=== PATIENT | female | born 1960 | race Caucasian/White ===

== ENCOUNTER 2017-06-13 20:03 | Emergency (ER) | payer OTHER ==
[~2017-06-13] VITALS: Ht 170.2 cm; Wt 81.6 kg
[~2017-06-13 20:03] MED LIST: ALPR0.5T7 PO; BUTA-187 PO; HYDR-2601; LOSA50TA6 PO
[2017-06-13] MEDS ORDERED: SODIUM CHLORIDE 0.9% 1,000 ML IV ONE ×2 (23:00)
[2017-06-13 23:07] LABS: Basophils # (auto) 0 uL; Basophils % (auto) 0.2 % (0.0-2.0); Eosinophils # (auto) 0.1 uL; Eosinophils % (auto) 0.7 % (0.0-7.0); Hematocrit 40.5 % (36.0-46.0); Lymphocytes # (auto) 2.3 uL; Lymphocytes % (auto) 15.3 % (10.0-50.0); Mean Corpuscular Hemoglobin 33.2 pg (28.0-32.0); Mean Corpuscular Hgb Conc. 34.5 g/dL (32.0-36.0); Mean Corpuscular Volume 96.4 fL (80.0-100.0); Mean Platelet Volume 8.7 fL (6.9-10.8); Monocytes % (auto) 6.6 % (0.0-12.0); Neutrophils # (auto) 11.6 uL; Neutrophils % (auto) 77.2 % (37.0-80.0); Platelet Count (auto) 254 10^3/uL (140-450); Red Cell Distribution Width 13.5 % (11.8-14.3)
[2017-06-13 23:19] LABS: Acetaminophen < 2.0 ug/mL (10-30); Albumin 3.5 g/dL (3.4-5.0); Anion Gap 6 (5-15); Aspartate Aminotransferase 13 U/L (15-37); BUN/Creatinine Ratio 21.1; Blood Urea Nitrogen 15 mg/dL (7-18); Calcium 8.5 mg/dL (8.5-10.1); Carbon Dioxide 26 mmol/L (21-32); Chloride 107 mmol/L (98-107); GFR African American 110 mL/min; GFR Non-African American 91 mL/min; Glucose 131 mg/dL (74-106); Potassium 3.8 mmol/L (3.5-5.1); Salicylate 4.8 mg/dL (2.8-20.0); Sodium 139 mmol/L (136-145)
[2017-06-13 23:23] LABS: Alkaline Phosphatase 77 U/L (45-117); Bilirubin, Total 0.1 mg/dL (0.2-1.0); Total Protein 7.2 g/dL (6.4-8.2)
[2017-06-14 00:25] VITALS: BP 132/72
[2017-06-14 01:33] LABS: Urine Bilirubin Negative (Negative); Urine Blood Negative /uL (Negative); Urine Color Yellow (Yellow); Urine Glucose Normal (Normal); Urine Ketone Negative (Negative); Urine Nitrite Negative (Negative); Urine RBC 1 /hpf (0 - 4); Urine Squamous Epithelial Cell FEW /hpf (<5); Urine Urobilinogen Normal (Negative); Urine pH 5.5 (5.0-8.0)
== END 2017-06-14 02:04 | disposition home or self-care (01) ==
LOC: EDBD 20:03 → ER 20:20
DX: G40.909 Epilepsy, unspecified, not intractable, without status epilepticus (principal); I10 Essential (primary) hypertension; F17.210 Nicotine dependence, cigarettes, uncomplicated
CPT/HCPCS: 36415; 70450; 80053; 80307; 80320; 80329; 81001; 85025; 96360

== ENCOUNTER 2018-07-06 18:53 | Emergency (ER) | payer OTHER ==
[~2018-07-06] VITALS: Ht 160 cm; Wt 83.9 kg
[~2018-07-06 18:53] MED LIST changes: +LOSA-46 PO; -LOSA50TA6 PO
[2018-07-06 19:00] VITALS: BP 166/99
== END 2018-07-06 22:55 | disposition home or self-care (01) ==
LOC: ER 18:53
DX: S63.501A Unspecified sprain of right wrist, initial encounter (principal); S60.221A Contusion of right hand, initial encounter; I10 Essential (primary) hypertension; F17.210 Nicotine dependence, cigarettes, uncomplicated; W18.30XA Fall on same level, unspecified, initial encounter; Y93.01 Activity, walking, marching and hiking; Y92.481 Parking lot as the place of occurrence of the external cause; Y99.8 Other external cause status
CPT/HCPCS: 73100; 73120

== ENCOUNTER 2020-04-25 11:21 | Emergency (ER) | payer SELFPAY ==
[~2020-04-25] VITALS: Ht 160 cm; Wt 83.5 kg
[~2020-04-25 11:21] MED LIST changes: -LOSA-46 PO; +LOSA-69 PO
[2020-04-25 11:44] VITALS: BP 138/91
[2020-04-25] MEDS ORDERED: HYDROmorphone HCL 2 MG/ML VL IM ONE (13:30)
[2020-04-25] MEDS ORDERED: ONDANSETRON HCL 4 MG/2 ML VIAL IM ONE (13:30)
== END 2020-04-25 13:27 | disposition home or self-care (01) ==
LOC: ER 11:21
DX: S82.191A Other fracture of upper end of right tibia, initial encounter for closed fracture (principal); S82.831A Other fracture of upper and lower end of right fibula, initial encounter for closed fracture; F17.210 Nicotine dependence, cigarettes, uncomplicated; I10 Essential (primary) hypertension; Z79.899 Other long term (current) drug therapy; W18.11XA Fall from or off toilet without subsequent striking against object, initial encounter; Y93.89 Activity, other specified; Y92.89 Other specified places as the place of occurrence of the external cause; Y99.8 Other external cause status
CPT/HCPCS: 29515; 70450; 72170; 73562; 73610; 96372; 99284; J1170; J2405

== ENCOUNTER 2020-12-04 13:07 | Emergency (ER) | payer MEDICAID, OTHER ==
[~2020-12-04] VITALS: Ht 160 cm; Wt 81.6 kg
[2020-12-04 15:00] VITALS: BP 139/92
[2020-12-04] MEDS ORDERED: HYDROcodone-ACET 5/325MG TAB PO ONE (15:15)
== END 2020-12-04 15:42 | disposition home or self-care (01) ==
LOC: ER 13:07
DX: S83.8X1A Sprain of other specified parts of right knee, initial encounter (principal); I10 Essential (primary) hypertension; F17.210 Nicotine dependence, cigarettes, uncomplicated; Z79.899 Other long term (current) drug therapy; W18.39XA Other fall on same level, initial encounter; Y93.89 Activity, other specified; Y92.89 Other specified places as the place of occurrence of the external cause; Y99.8 Other external cause status
CPT/HCPCS: 73562

== ENCOUNTER 2022-12-29 02:11 | Emergency (ER) | payer MEDICAID ==
[~2022-12-29] VITALS: Ht 160 cm; Wt 85.0 kg
[2022-12-29 02:11] VITALS: BP 129/76
[~2022-12-29 02:11] MED LIST changes: -LOSA-69 PO; +LOSA50TA46 PO
== END 2022-12-29 06:06 | disposition left against medical advice (07) ==
LOC: EDBD 02:11 → ER 02:11
DX: M54.50 Low back pain, unspecified (principal); Z53.21 Procedure and treatment not carried out due to patient leaving prior to being seen by health care provider